=== PATIENT | female | born 2000 | race African-American/Black ===

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

== ENCOUNTER 2021-03-31 07:46 | Emergency (ER) | payer MEDICAID ==
[~2021-03-31] VITALS: Ht 170.2 cm; Wt 68.0 kg
[2021-03-31 08:00] VITALS: BP 125/68
[2021-03-31] MEDS ORDERED: CLINDAMYCIN 600 MG in DEXTROSE 5% WATER 50 ML IV ONE (08:15)
[2021-03-31] MEDS ORDERED: KETOROLAC 30MG/ML VIAL IV ONE (08:15)
[2021-03-31] MEDS ORDERED: DEXAMETHASONE 10 MG/ML VIAL IV ONE (08:15)
[2021-03-31] MEDS ORDERED: CLINDAMYCIN 600MG PREMIX 50 ML IV SCH (08:30)
[2021-03-31] MEDS ORDERED: IBUP-2028 MT (08:45)
[2021-03-31] MEDS ORDERED: CLIN300C12 MT (08:45)
== END 2021-03-31 15:44 | disposition home or self-care (01) ==
LOC: ER 07:46
DX: K04.7 Periapical abscess without sinus (principal); L03.211 Cellulitis of face
CPT/HCPCS: 81025; 96365; 96375; 99284; J1100; J1885; J3490; J7060

== ENCOUNTER 2021-09-15 00:05 | Emergency (ER) | payer MEDICAID ==
[~2021-09-15] VITALS: Ht 162.6 cm; Wt 73.5 kg
[~2021-09-15 00:05] MED LIST: CLIN300C12 MT; IBUP-2028 MT
[2021-09-15] MEDS ORDERED: IBUPROFEN 600MG TABLET PO STA (00:41)
[2021-09-15 01:30] VITALS: BP 120/74
[2021-09-15] MEDS ORDERED: IBUP-2029 PO (01:48)
[2021-09-15] MEDS ORDERED: AMOX-494 PO (01:48)
== END 2021-09-15 02:09 | disposition home or self-care (01) ==
LOC: ER 00:05
DX: K08.89 Other specified disorders of teeth and supporting structures (principal)
CPT/HCPCS: 81025; 99283

== ENCOUNTER 2021-09-17 17:34 | Emergency (ER) | payer MEDICAID ==
[~2021-09-17] VITALS: Ht 165.1 cm; Wt 73.0 kg
[~2021-09-17 17:34] MED LIST changes: +AMOX-494 PO; -IBUP-2028 MT; +IBUP-2029 PO
[2021-09-17 18:18] LABS: BASOPHILS % 0.5 % (0.0-2.0); EOSINOPHILS % 0.8 % (0.0-5.0); HEMATOCRIT. 39.7 % (36.0-48.0); HEMOGLOBIN. 13.1 g/dL (12.0-16.0); LYMPHOCYTES % 25.3 % (20.0-50.0); MEAN CORPUSCULAR HEMOGLOBIN 27.3 pg (28.0-32.0); MEAN CORPUSCULAR VOLUME 82.7 fL (81.0-99.0); MEAN PLATELET VOLUME 8.3 fl (7.4-10.4); MONOCYTES % 8.5 % (2.0-8.0); NEUTROPHILS % 64.9 % (40.0-76.0); PLATELET 242 x1000/uL (130-400); RED CELL DISTRIBUTION WIDTH 14.1 % (11.6-14.6)
[2021-09-17 18:26] LABS: CHLORIDE 109 mEq/L (98-107)
[2021-09-17 19:33] LABS: CLARITY URINE CLEAR (CLEAR); COLOR URINE DARK YELLOW (YELLOW); KETONES URINE NEGATIVE (NEGATIVE); LEUKOCYTE ESTERASE URINE 2+ (NEGATIVE); NITRITE URINE NEGATIVE (NEGATIVE); OCCULT BLOOD URINE 2+ (NEGATIVE); PH URINE 6.5 (4.5-8.0); PROTEIN URINE NEGATIVE (NEGATIVE); SPECIFIC GRAVITY URINE 1.025 (1.005-1.030)
[2021-09-17] MEDS ORDERED: IBUPROFEN 600MG TABLET PO ONE (20:00)
[2021-09-17] MEDS ORDERED: POTASSIUM CHLORIDE 20MEQ TABLET SR PO ONE (20:00)
[2021-09-17] MEDS ORDERED: CEPH500C2 MT (20:29)
[2021-09-17] MEDS ORDERED: IBUP-2029 MT (20:29)
[2021-09-17 20:46] VITALS: BP 118/80
== END 2021-09-17 20:42 | disposition home or self-care (01) ==
LOC: ER 17:45
DX: E87.6 Hypokalemia (principal); N30.90 Cystitis, unspecified without hematuria
CPT/HCPCS: 36415; 71045; 80048; 81003; 81025; 85025; 93005; 99285

== ENCOUNTER 2021-10-13 20:37 | Emergency (ER) | payer MEDICAID ==
[~2021-10-13] VITALS: Ht 165.1 cm; Wt 71.7 kg
[~2021-10-13 20:37] MED LIST changes: +CEPH500C2 MT; +IBUP-2029 MT
[2021-10-13 21:59] VITALS: BP 114/75
[2021-10-13 22:29] LABS: CLARITY URINE CLEAR (CLEAR); COLOR URINE YELLOW (YELLOW); KETONES URINE NEGATIVE (NEGATIVE); LEUKOCYTE ESTERASE URINE 2+ (NEGATIVE); NITRITE URINE NEGATIVE (NEGATIVE); OCCULT BLOOD URINE TRACE (NEGATIVE); PROTEIN URINE NEGATIVE (NEGATIVE); SPECIFIC GRAVITY URINE 1.016 (1.005-1.030); UROBILINOGEN URINE 0.2 E.U./dL (0.2-1.0)
[2021-10-13] MEDS ORDERED: IBUPROFEN 600MG TABLET PO ONE (22:45)
[2021-10-13] MEDS ORDERED: CEFP200T13 MT (23:08)
== END 2021-10-13 23:54 | disposition home or self-care (01) ==
LOC: ER 20:37
DX: Z32.02 Encounter for pregnancy test, result negative (principal); M54.9 Dorsalgia, unspecified; N39.0 Urinary tract infection, site not specified
CPT/HCPCS: 81003; 81025; 99283

== ENCOUNTER 2021-10-20 09:17 | Emergency (ER) | payer MEDICAID ==
[~2021-10-20] VITALS: Ht 167.6 cm; Wt 82.0 kg
[~2021-10-20 09:17] MED LIST changes: +CEFP200T13 MT
[2021-10-20 09:24] VITALS: BP 119/72
[2021-10-20] MEDS ORDERED: CEFP200T13 MT (10:12)
== END 2021-10-20 10:16 | disposition home or self-care (01) ==
LOC: ER 09:17
DX: N39.0 Urinary tract infection, site not specified (principal); Z76.0 Encounter for issue of repeat prescription
CPT/HCPCS: 99283

== ENCOUNTER → 2022-10-29 | Emergency (ER) | payer MEDICAID ==
[~2022-10-29] VITALS: Ht 170.2 cm; Wt 72.5 kg
[~2022-10-29] MED LIST changes: +CLIN-194 MT; -CLIN300C12 MT
[2022-10-29 15:15] VITALS: BP 144/78
== END ==
LOC: ER 15:10
DX: Z53.21 Procedure and treatment not carried out due to patient leaving prior to being seen by health care provider (principal)
CPT/HCPCS: 99281; Z7610

== ENCOUNTER 2022-11-19 01:18 | Emergency (ER) | payer MEDICAID ==
[~2022-11-19] VITALS: Ht 165.1 cm; Wt 53.0 kg
[2022-11-19 01:56] VITALS: O2SAT 99
[2022-11-19] MEDS ORDERED: ACETAMINOPHEN 325MG TABLET PO ONE (03:30)
[2022-11-19 03:59] VITALS: BP 123/79; PULSE 75; RESP 18; TEMP 99.9
[2022-11-19] MEDS ORDERED: AZIT500T8 MT (04:57)
[2022-11-19] MEDS ORDERED: ACET-2708 MT (04:57)
[2022-11-19] MEDS ORDERED: AZITHROMYCIN 500 MG TABLET PO ONE (05:00)
== END 2022-11-19 05:23 | disposition home or self-care (01) ==
LOC: ER 02:18
DX: R50.9 Fever, unspecified (principal); J18.9 Pneumonia, unspecified organism; Z79.899 Other long term (current) drug therapy; Z20.822 Contact with and (suspected) exposure to COVID-19
CPT/HCPCS: 99284; 71045; 87426; 81025; 87804 ×2; C9803

== ENCOUNTER 2023-05-10 19:37 | Emergency (ER) | payer MEDICAID ==
[~2023-05-10] VITALS: Ht 167.6 cm; Wt 77.0 kg
[~2023-05-10 19:37] MED LIST changes: +ACET-2708 MT; +AZIT500T8 MT
[2023-05-10 19:48] VITALS: BP 144/78; O2SAT 100
[2023-05-10] MEDS ORDERED: ACETAMINOPHEN 500MG TABLET PO ONE (20:00)
[2023-05-10 21:40] LABS: GLUCOSE URINE NEGATIVE (NEGATIVE); KETONES URINE NEGATIVE (NEGATIVE)
[2023-05-10 22:15] LABS: CLARITY URINE CLEAR (CLEAR); COLOR URINE DARK YELLOW (YELLOW); NITRITE URINE NEGATIVE (NEGATIVE); OCCULT BLOOD URINE NEGATIVE (NEGATIVE); PH URINE 5.5 (4.5-8.0); PROTEIN URINE NEGATIVE (NEGATIVE); SPECIFIC GRAVITY URINE 1.023 (1.005-1.030)
[2023-05-10 22:16] LABS: LEUKOCYTE ESTERASE URINE NEGATIVE (NEGATIVE)
[2023-05-10 22:20] LABS: BACTERIA URINE NONE SEEN; RBC URINE NONE SEEN /hpf (0-2); SQUAMOUS EPITHELIAL CELL URINE 2+ /lpf (RARE/1+); WBC URINE 0-2 /hpf (0-2)
[2023-05-10 22:52] VITALS: PULSE 75; RESP 18; TEMP 100.3
[2023-05-10] MEDS ORDERED: ACETAMINOPHEN 500MG TABLET PO NR (23:00)
== END 2023-05-10 22:58 | disposition home or self-care (01) ==
LOC: ER 19:37
DX: R51.9 Headache, unspecified (principal)
CPT/HCPCS: 81003; 81025; 87804; 99283

== ENCOUNTER 2024-01-11 12:39 | Emergency (ER) | payer MEDICAID ==
[~2024-01-11] VITALS: Ht 167.6 cm; Wt 90.0 kg
[2024-01-11 12:44] VITALS: TEMP 98.7; O2SAT 99
[2024-01-11 17:46] VITALS: BP 136/66; PULSE 77; RESP 16
== END 2024-01-11 17:47 | disposition home or self-care (01) ==
LOC: ER 12:46
DX: M25.461 Effusion, right knee (principal); Z79.899 Other long term (current) drug therapy
CPT/HCPCS: 73562; 99283; Z7610; L1830

== ENCOUNTER 2024-01-15 14:19 | Emergency (ER) | payer MEDICAID ==
[~2024-01-15] VITALS: Ht 162.6 cm; Wt 73.0 kg
[2024-01-15 14:25] VITALS: O2SAT 98
[2024-01-15 16:34] VITALS: BP 130/77; PULSE 78; RESP 16; TEMP 98.3; O2SAT 98
== END 2024-01-15 17:22 | disposition home or self-care (01) ==
LOC: ER 14:19
DX: M25.569 Pain in unspecified knee (principal)
CPT/HCPCS: 99281